=== PATIENT | female | born 1930 | race Caucasian/White ===

== ENCOUNTER 2019-08-13 05:32 | Observation (INO) ==
[2019-08-13 06:10] LABS: Microscopic, Urine URINE MICROSCOPIC (MICROSCOPIC)
[2019-08-13 06:13] LABS: Basophils % 0.3 % (0.1-2.0); Eosinophils # 0.1 K/mm3 (0.0-0.4); Eosinophils % 0.9 % (0.1-12.0); Lymphocytes # 1.5 K/mm3 (0.7-4.5); Mean Corpuscular HGB Conc 29.7 g/dL (31.8-35.4); Mean Corpuscular Volume 103.4 fl (81-99); Monocytes # 0.5 K/mm3 (0.1-1.0); Monocytes % 6.3 % (1.7-9.3); Neutrophils # 5.1 K/mm3 (1.8-7.8); Neutrophils % 71.5 % (37.0-80.0); Platelet Count 506 K/mm3 (142-424); Red Blood Count 3.57 M/mm3 (4.20-5.40); White Blood Count 7.1 K/mm3 (4.8-10.8)
[2019-08-13 06:15] LABS: Appearance,Urine CLEAR (Clear); Bilirubin,Urine Negative (Negative); Blood, Urine 1+ (Negative); Color,Urine YELLOW (Yellow); Glucose,Urine (UA) Negative (Negative); Ketones,Urine Negative (Negative); Leukocyte Esterase,Urine 3+ (Negative); PH,Urine 6.5 (5.0-8.5); Protein,Urine Negative (Negative)
[2019-08-13 06:20] LABS: Albumin Level 2.3 gm/dL (3.4-5.0); Albumin/Globulin Ratio 0.5 (1.1-1.8); Anion Gap 10.2 mEq/L (5-15); Bilirubin,Total 0.5 mg/dL (0.2-1.0); Calcium 9.5 mg/dL (8.5-10.1); Globulin 4.8 gm/dl (1.3-3.2); Total Protein,Serum 7.1 gm/dL (6.4-8.2)
[2019-08-13 06:32] LABS: Bacteria,Urine 3+ /lpf; Squamous Epithelial Cell,Urine Occasional #/hpf (0-5); WBC,Urine 20-50 #/hpf (0-3)
[2019-08-13 06:37] LABS: C-Reactive Protein 35.3 mg/dL (0.0-0.9)
[2019-08-13 06:54] LABS: Erythrocyte Sedimentation Rate > 140 mm/hr (0-30)
--- NOTE | 2019-08-13 07:10 | Emergency Department Note ---
ED Disposition Clinical Impression: Elevated erythrocyte sedimentation rate Pneumothorax Qualifiers: Pneumothorax type: unspecified pneumothorax Qualified Code(s): J93.9 - Pneumothorax, unspecified UTI (urinary tract infection) Qualifiers: Urinary tract infection type: site unspecified Hematuria presence: without hematuria Qualified Code(s): N39.0 - Urinary tract infection, site not specified Injury of left elbow Qualifiers: Encounter type: subsequent encounter Qualified Code(s): S59.902D - Unspecified injury of left elbow, subsequent encounter Dementia Qualifiers: Dementia type: unspecified type Dementia behavioral disturbance: with behavioral disturbance Qualified Code(s): 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 The time I documented below is in addition to time spent performing reported procedures but includes the following listed in this critical care notation. Medical Decision Making - Medical Records Medical records reviewed: Yes: I reviewed the patient's medical records. - Gabe Inquiry Pt receiving controlled substance: No Vital Signs: 08/13/19 05:32 08/13/19 05:33 08/13/19 08:08 Temperature 98.4 F 98.4 F Temperature Source Oral Oral Pulse Rate [Right] 81 81 75 Respiratory Rate 18 18 Blood Pressure [Right Radial Artery] 156/89 H 156/89 H 150/61 H Blood Pressure Mean [Right Radial Artery] 111 111 90 02 Sat by Pulse Oximetry 98 98 97 - Lab Data Lab results reviewed: Yes: I reviewed the patient's lab results. Lab Results 08/13/19 05:55: WBC 7.1, RBC 3.57 L, Hgb 11.0 L, Hct 37.0, MCV 103.4 H, MCH 3 0.7, MCHC 29.7 L, RDW 15.0, Plt Count 506 H, MPV 7.0 L, Neut % (Auto) 71.5, Lymph % (Auto) 21.0, [place] % (Auto) 6.3, Eos % (Auto) 0.9, Baso % (Auto) 0.3, Neut # (Auto) 5.1, Lymph # (Auto) 1.5, [place] # (Auto) 0.5, Eos # (Auto) 0.1, Baso # (Auto) 0.0, ESR > 140 H 08/13/19 05:55: Sodium 137, Potassium 4.2, Chloride 101, Carbon Dioxide 30, Anion Gap 10.2, BUN 37 H, Creatinine 1.02, Estimated Creat Clear 35, Estimated GFR 51 L, Est GFR ( Amer) 62, Glucose 100, Calcium 9.5, Total Bilirubin 0.5, AST 17, ALT 11 L, Alkaline Phosphatase 58, C-Reactive Protein 35.3 H, Total Protein 7.1, Albumin 2.3 L, Globulin 4.8 H, Albumin/Globulin Ratio 0.5 L 08/13/19 06:07: Urine Color Yellow, Urine Appearance Clear, Urine pH 6.5, Ur Specific [place] 1.010, Urine Protein Negative, Urine Glucose (UA) Negative, Urine Ketones Negative, Urine Blood 1+, Urine Nitrate Positive, Urine Bilirubin Negative, Urine Urobilinogen 1.0, Ur Leukocyte Esterase 3+ A, Urine RBC 5-10, Urine WBC 20-50, Ur Squamous Epith Cells Occasional, Urine Bacteria 3+ 08/13/19 06:40: Lactate 0.7 Result diagrams: 08/13/19 05:55 08/13/19 05:55 Orders (Tests/Meds): ED MEDICATIONS Generic Name Dose Route Start Last Admin Trade Name Freq PRN Reason Stop Dose Admin Ceftriaxone Sodium 1 gm/ 50 mls @ 100 mls/hr 08/13/19 07:30 08/13/19 07:27 Sodium Chloride IV 08/27/19 07:29 100 mls/hr Q24H OLIVIA Administration Protocol Discontinued Medications Generic Name Dose Route Start Last Admin Trade Name Freq PRN Reason Stop Dose Admin Sodium Chloride 1,000 mls @ 999 mls/hr 08/13/19 05:45 08/13/19 06:06 Sod Chlor 0.9% 1000ml Bag IV 08/13/19 06:45 999 mls/hr .Q1H1M OLIVIA Administration ORDERS Category Date Time Status XR chest AP Stat Exams 08/13/19 05:40 Taken XR pelvis 1-2V Stat Exams 08/13/19 05:40 Taken Blood Culture Stat Micro 08/13/19 06:40 Received Urine Culture Stat Micro 08/13/19 06:07 Received - Radiology Data #1 Image(s): Chest, Pelvis Image Reviewed: Yes I reviewed the patient's radiology image Preliminary Findings: Abnormal (pxt on lt ) - CT Data CT Scan: Head, C-Spine Time Received: 07:[address] Reviewed: Yes: I have viewed the radiologist's interpretation Preliminary Findings: Abnormal (djd), No Fracture Seen - Physician Consults Physician Consulted: alessandra Reason -: Admission Additional Consult: howie Reason -: Pt condition Fall HPI - General Chief Complaint: Fall Stated Complaint: Fall Time Seen by Provider: 08/13/19 06:15 Mode of Arrival: EMS Limitations: Physical Limitations Description of Symptoms (Recalled from ER Triage Doc. by RN): Pt brought in per ems for an unwitnessed fall according to the alf nurse. Pt denies any pain or any other complaints. - History of Present Illness HPI Narrative: pt with c/o of reported hip pain on lt - pt with no specific c/o at this time Onset (ago): hour(s) Place fall occurred: alf/SNF Loss of consciousness: none Prolonged down time: no Location of injury: head, neck Severity: moderate Associated symptoms (after fall): denies - Related Data Home Medications Medication Instructions Recorded Confirmed Atenolol [Atenolol 50mg Tab] 50 mg PO DAILY 07/02/19 08/13/19 Atorvastatin Calcium [Atorvastatin 20 mg PO HS 07/02/19 08/13/19 20mg Tab] Clopidogrel Bisulfate [Plavix 75mg 75 mg PO DAILY 07/02/19 08/13/19 Tab] LORazepam [Ativan 0.5mg 0.5 mg PO DAILY 07/02/19 08/13/19 tablet] Levothyroxine Sodium 75 mcg PO DAILY 07/02/19 08/13/19 [Levothyroxine 75mcg (0.075mg) Tab] Megestrol Acetate [Megace Es] 625 mg PO DAILY 07/02/19 08/13/19 hydroCHLOROthiazide [HCTZ 25mg 25 mg PO DAILY 07/02/19 08/13/19 tab] Acetaminophen [Acetaminophen Extra 500 mg PO NEEDED PRN 08/13/19 08/13/19 Strength] Polyethylene Glycol 3350 [Miralax 17 gm PO DAILYP PRN 08/13/19 08/13/19 17gm Packet] Allergies Allergy/AdvReac Type Severity Reaction Status Date / Time Penicillins [PENICILLINS] Allergy Unknown Verified 05/02/18 14:23 [facility] History - Hepatitis A Screen Drug use history?: No High risk sexual behaviors?: No History of sexually transmitted infection?: No Currently employed?: No Childcare worker?: No Do you have indoor plumbing?: Yes Do you have electricity?: Yes Attestation statement:: This patient has been screened for Hepatitis A risk factors. I have reviewed the patient's past medical history: Yes Medical History: Denies:: Diabetes Mellitus Type 1, Diabetes Mellitus Type 2 Other Medical History: Reports: Hypothyroidism - Social History Alcohol Intake: never Occupational Status: retired ROS Obtained: Yes unobtainable due to mental status Physical Exam - General General appearance: alert - Head Head exam: normocephalic - Eye Eye exam: Present: PERRL, EOMI - ENT ENT exam: Present: mucous membranes dry - Neck Neck exam: Present: trachea midline - Respiratory Respiratory exam: Present: other (dec bs on lt ). Absent: respiratory distress - Cardiovascular Cardiovascular exam: Present: regular rate, systolic murmur, +S4 - Abdominal Exam Abdominal exam: Present: soft - Extremities Exam Extremities exam: Present: other (chronic changes on lt ) - Neurological Exam Neurological exam: Present: alert, CN II-XII intact, other (has prob dementia) - Skin Skin exam: Absent: rash
--- NOTE | 2019-08-13 08:58 | Pharmacy Consult Notes ---
[facility] Pharmacy VTE Monitoring - Patient Demographics Admission date: 08/13/19 Report Date: 08/13/19 Time: 08:58 Allergies/Adverse Reactions: Patient Allergies Penicillins [PENICILLINS] Allergy (Unknown, Verified 05/02/18 14:23) Height: 1.52 m Weight: 58.967 kg Patient Problems: Current Active Problems Injury of left elbow (Acute) Dementia (Acute) Pneumothorax (Acute) UTI (urinary tract infection) (Acute) Elevated erythrocyte sedimentation rate (Acute) - VTE Risk Labs: VTE Related Lab Results Hgb 11.0 g/dL (12.2-16.2) L 08/13/19 05:55 Hct 37.0 % (37.0-47.0) 08/13/19 05:55 Plt Count 506 K/mm3 (142-424) H 08/13/19 05:55 BUN 37 mg/dL (7-18) H 08/13/19 05:55 Creatinine 1.02 mg/dL (0.55-1.02) 08/13/19 05:55 Estimated Creat Clear 35 mL/min (50-200) 08/13/19 05:55 - Prophylaxis VTE Prophylaxis Ordered?: Yes Types of VTE Prophylaxis: TEDS Knee High Location of Applied Device: Bilateral Lower Extremeties - VTE Diagnosis Confirmed Treatment or plan recommended: Continue Current Treatment
--- NOTE | 2019-08-13 11:10 | H&P/Discharge Summary ---
General - General Admission date:: 08/13/19 Discharge date: 08/13/19 *Admission Date: 08/13/19 *Chief complaint: Hip pain *History of present illness: 88-year-old female custodial resident presented to the emergency department earlier this morning because of complaint of hip pain with questionable history of fall. Patient was evaluated and while her work-up ruled out a hip fracture a chest x-ray that was performed during the evaluation raise high suspicion for a pneumothorax. Patient did not claim any shortness of breath and her O2 sats were normal. Decision was made to obtain a surgical consultation and admit the patient for observation. [facility] History I have reviewed the patient's past medical history: Yes Medical History: Reports:: Dementia, Hyperlipidemia, Hypertension Denies:: Diabetes Mellitus Type 1, Diabetes Mellitus Type 2 *Have you ever received a pneumonia vaccine?: Yes *Have you received a flu vaccine this season?: Yes Other Medical History: Reports: Hypothyroidism Laterality Cases: Left: Total Knee Replacement Other Surgeries: Yes: Colon Resection, Hysterectomy-Total - *Social History Smoking Status: Never smoker Alcohol Intake: never *Occupational Status:: retired Housing: custodial *Travel in the last 8 weeks: None Family Hx:: Cancer, Heart Attack, Hyperlipidemia, Hypertension, Thyroid Disorder Review of Systems - Review of Systems Review of systems:: unable to obtain Exam Vital signs and Labs for Last 24 Hours: Temp Pulse Resp BP Pulse Ox 97.6 F 76 16 155/87 H 98 08/13/19 10:00 08/13/19 10:00 08/13/19 10:00 08/13/19 10:00 08/13/19 10:00 Laboratory Results - last 24 hr 08/13/19 05:55: WBC 7.1, RBC 3.57 L, Hgb 11.0 L, Hct 37.0, MCV 103.4 H, MCH 30.7, MCHC 29.7 L, RDW 15.0, Plt Count 506 H, MPV 7.0 L, Neut % (Auto) 71.5, Lymph % (Auto) 21.0, [place] % (Auto) 6.3, Eos % (Auto) 0.9, Baso % (Auto) 0.3, Neut # (Auto) 5.1, Lymph # (Auto) 1.5, [place] # (Auto) 0.5, Eos # (Auto) 0.1, Baso # (Auto) 0.0, ESR > 140 H 08/13/19 05:55: Sodium 137, Potassium 4.2, Chloride 101, Carbon Dioxide 30, Anion Gap 10.2, BUN 37 H, Creatinine 1.02, Estimated Creat Clear 35, Estimated GFR 51 L, Est GFR ( Amer) 62, Glucose 100, Calcium 9.5, Total Bilirubin 0.5, AST 17, ALT 11 L, Alkaline Phosphatase 58, C-Reactive Protein 35.3 H, Total Protein 7.1, Albumin 2.3 L, Globulin 4.8 H, Albumin/Globulin Ratio 0.5 L 08/13/19 06:07: Urine Color Yellow, Urine Appearance Clear, Urine pH 6.5, Ur Specific [place] 1.010, Urine Protein Negative, Urine Glucose (UA) Negative, Urine Ketones Negative, Urine Blood 1+, Urine Nitrate Positive, Urine Bilirubin Negative, Urine Urobilinogen 1.0, Ur Leukocyte Esterase 3+ A, Urine RBC 5-10, Urine WBC 20-50, Ur Squamous Epith Cells Occasional, Urine Bacteria 3+ 08/13/19 06:40: Lactate 0.7 I & O for Last 24 hours: Intake & Output 08/10/19 08/11/19 08/12/19 08/13/19 11:59 11:59 11:59 11:59 Weight 107 lb 4 oz Narrative: Patient is awake and sitting up in bed eating lunch at this time. She does not appear to be in any distress. She is not requiring supplemental oxygen. Head exam is grossly normal. Oropharynx is moist. Lungs have equal breath sounds bilaterally. Heart has a regular rate and rhythm. Skin exam does not reveal any subcutaneous air in the supraclavicular region. Patient can move all extremities. Neurologically patient can answer yes and no questions but has difficulty speaking in sentences. She is able to indicate to me that she wants her sister making decisions if she is incapable Hospital Course Hospital Course: Patient was admitted and surgical consult was obtained. Question was raised abo ut the presence of pneumothorax and after official radiology review it was determined that there is no pneumothorax. Patient's exam is not consistent with pneumothorax. Chest x-ray did show a skinfold that was quite deceptive. Patient will be discharged back to [facility]. No changes will be made in medications except for the addition of antibiotic to treat urinary tract infection Results Labs on day of discharge: Labs from last 24 hours 08/13/19 08/13/19 08/13/19 06:40 06:07 05:55 WBC RBC Hgb Hct MCV MCH MCHC RDW Plt Count MPV Neut % (Auto) Lymph % (Auto) [place] % (Auto) Eos % (Auto) Baso % (Auto) Neut # (Auto) Lymph # (Auto) [place] # (Auto) Eos # (Auto) Baso # (Auto) ESR Sodium 137 Potassium 4.2 Chloride 101 Carbon Dioxide 30 Anion Gap 10.2 BUN 37 H Creatinine 1.02 Estimated Creat Clear 35 Estimated GFR 51 L Est GFR ( Amer) 62 Glucose 100 Lactate 0.7 Calcium 9.5 Total Bilirubin 0.5 AST 17 ALT 11 L Alkaline Phosphatase 58 C-Reactive Protein 35.3 H Total Protein 7.1 Albumin 2.3 L Globulin 4.8 H Albumin/Globulin Ratio 0.5 L Urine Color Yellow Urine Appearance Clear Urine pH 6.5 Ur Specific [place] 1.010 Urine Protein Negative Urine Glucose (UA) Negative Urine Ketones Negative Urine Blood 1+ Urine Nitrate Positive Urine Bilirubin Negative Urine Urobilinogen 1.0 Ur Leukocyte Esterase 3+ A Urine RBC 5-10 Urine WBC 20-50 Ur Squamous Epith Cells Occasional Urine Bacteria 3+ 08/13/19 05:55 WBC 7.1 RBC 3.57 L Hgb 11.0 L Hct 37.0 MCV 103.4 H MCH 30.7 MCHC 29.7 L RDW 15.0 Plt Count 506 H MPV 7.0 L Neut % (Auto) 71.5 Lymph % (Auto) 21.0 [place] % (Auto) 6.3 Eos % (Auto) 0.9 Baso % (Auto) 0.3 Neut # (Auto) 5.1 Lymph # (Auto) 1.5 [place] # (Auto) 0.5 Eos # (Auto) 0.1 Baso # (Auto) 0.0 ESR > 140 H Sodium Potassium Chloride Carbon Dioxide Anion Gap BUN Creatinine Estimated Creat Clear Estimated GFR Est GFR ( Amer) Glucose Lactate Calcium Total Bilirubin AST ALT Alkaline Phosphatase C-Reactive Protein Total Protein Albumin Globulin Albumin/Globulin Ratio Urine Color Urine Appearance Urine pH Ur Specific [place] Urine Protein Urine Glucose (UA) Urine Ketones Urine Blood Urine Nitrate Urine Bilirubin Urine Urobilinogen Ur Leukocyte Esterase Urine RBC Urine WBC Ur Squamous Epith Cells Urine Bacteria DS: Diagnosis - Discharge Diagnosis (1) UTI (urinary tract infection) Status: Acute (2) Abnormal chest x-ray Status: Acute (3) Dementia Status: Acute Discharge Plan - Patient Discharge Instructions ACTIVITY: Continue current activity DIET: continue same diet - Follow up Plan Disposition: [facility] Home Medications: Home Medications Medication Instructions Recorded Confirmed Type Atorvastatin Calcium [Atorvastatin 20 mg PO HS 07/02/19 08/13/19 History 20mg Tab] Clopidogrel Bisulfate [Plavix 75mg 75 mg PO DAILY 07/02/19 08/13/19 History Tab] LORazepam [Ativan 0.5mg 1 mg PO HS 07/02/19 08/13/19 History tablet] Levothyroxine Sodium 75 mcg PO DAILY 07/02/19 08/13/19 History [Levothyroxine 75mcg (0.075mg) Tab] hydroCHLOROthiazide [HCTZ 25mg 25 mg PO DAILY 07/02/19 08/13/19 History tab] Acetaminophen [Acetaminophen Extra 500 mg PO NEEDED PRN 08/13/19 08/13/19 History Strength] Cyproheptadine HCl 4 mg PO 0600,1100,1600 08/13/19 08/13/19 History Nitrofurantoin Macrocrystal 100 mg PO QID 7 Days #28 cap 08/13/19 Rx [Macrodantin 100mg capsule] Polyethylene Glycol 3350 [Miralax 17 gm PO DAILY 08/13/19 08/13/19 History 17gm Packet] Prescriptions/Medication Reconciliation: New Nitrofurantoin Macrocrystal [Macrodantin 100mg capsule] 100 mg PO QID 7 Days #28 cap Continued LORazepam [Ativan 0.5mg tablet] 1 mg PO HS Levothyroxine Sodium [Levothyroxine 75mcg (0.075mg) Tab] 75 mcg PO DAILY hydroCHLOROthiazide [HCTZ 25mg tab] 25 mg PO DAILY Clopidogrel Bisulfate [Plavix 75mg Tab] 75 mg PO DAILY Cyproheptadine HCl 4 mg PO 0600,1100,1600 Atorvastatin Calcium [Atorvastatin 20mg Tab] 20 mg PO HS Polyethylene Glycol 3350 [Miralax 17gm Packet] 17 gm PO DAILY Acetaminophen [Acetaminophen Extra Strength] 500 mg PO NEEDED PRN PRN Reason: pain - Problem Reconciliation Problems Reviewed?: Yes
--- NOTE | 2019-08-13 11:35 | Consult Report ---
*Admission Date: 08/13/19 *Reason for consult:: Left pneumothorax *History of present illness: This is an 88-year-old female seen in consultation after presenting to the emergency department for an apparent fall. A possible left-sided pneumothorax with some subcu emphysema noted on chest x-ray. She is not short of air. Review of Systems - *Respiratory Denies shortness of breath [facility] History Medical History: Reports:: Hyperlipidemia, Hypertension Denies:: Diabetes Mellitus Type 1, Diabetes Mellitus Type 2 *Have you ever received a pneumonia vaccine?: Yes *Have you received a flu vaccine this season?: Yes Other Medical History: Reports: Hypothyroidism Laterality Cases: Left: Total Knee Replacement Other Surgeries: Yes: Colon Resection, Hysterectomy-Total - *Social History Smoking Status: Never smoker Alcohol Intake: never *Occupational Status:: retired Housing: shelter *Travel in the last 8 weeks: None Family Hx:: Cancer, Heart Attack, Hyperlipidemia, Hypertension, Thyroid Disorder Meds Home Medications Medication Instructions Recorded Confirmed Type Atorvastatin Calcium [Atorvastatin 20 mg PO HS 07/02/19 08/13/19 History 20mg Tab] Clopidogrel Bisulfate [Plavix 75mg 75 mg PO DAILY 07/02/19 08/13/19 History Tab] LORazepam [Ativan 0.5mg 1 mg PO HS 07/02/19 08/13/19 History tablet] Levothyroxine Sodium 75 mcg PO DAILY 07/02/19 08/13/19 History [Levothyroxine 75mcg (0.075mg) Tab] hydroCHLOROthiazide [HCTZ 25mg 25 mg PO DAILY 07/02/19 08/13/19 History tab] Acetaminophen [Acetaminophen Extra 500 mg PO NEEDED PRN 08/13/19 08/13/19 History Strength] Cyproheptadine HCl 4 mg PO 0600,1100,1600 08/13/19 08/13/19 History Polyethylene Glycol 3350 [Miralax 17 gm PO DAILY 08/13/19 08/13/19 History 17gm Packet] Allergies Allergy/AdvReac Type Severity Reaction Status Date / Time Penicillins [PENICILLINS] Allergy Unknown Verified 05/02/18 14:23 Exam Vital signs and Labs for Last 24 Hours: Temp Pulse Resp BP Pulse Ox 97.6 F 76 16 155/87 H 98 08/13/19 10:00 08/13/19 10:00 08/13/19 10:00 08/13/19 10:00 08/13/19 10:00 Laboratory Results - last 24 hr 08/13/19 05:55: WBC 7.1, RBC 3.57 L, Hgb 11.0 L, Hct 37.0, MCV 103.4 H, MCH 30.7, MCHC 29.7 L, RDW 15.0, Plt Count 506 H, MPV 7.0 L, Neut % (Auto) 71.5, L ymph % (Auto) 21.0, [place] % (Auto) 6.3, Eos % (Auto) 0.9, Baso % (Auto) 0.3, Neut # (Auto) 5.1, Lymph # (Auto) 1.5, [place] # (Auto) 0.5, Eos # (Auto) 0.1, Baso # (Auto) 0.0, ESR > 140 H 08/13/19 05:55: Sodium 137, Potassium 4.2, Chloride 101, Carbon Dioxide 30, Anion Gap 10.2, BUN 37 H, Creatinine 1.02, Estimated Creat Clear 35, Estimated GFR 51 L, Est GFR ( Amer) 62, Glucose 100, Calcium 9.5, Total Bilirubin 0.5, AST 17, ALT 11 L, Alkaline Phosphatase 58, C-Reactive Protein 35.3 H, Total Protein 7.1, Albumin 2.3 L, Globulin 4.8 H, Albumin/Globulin Ratio 0.5 L 08/13/19 06:07: Urine Color Yellow, Urine Appearance Clear, Urine pH 6.5, Ur Specific [place] 1.010, Urine Protein Negative, Urine Glucose (UA) Negative, Urine Ketones Negative, Urine Blood 1+, Urine Nitrate Positive, Urine Bilirubin Negative, Urine Urobilinogen 1.0, Ur Leukocyte Esterase 3+ A, Urine RBC 5-10, Urine WBC 20-50, Ur Squamous Epith Cells Occasional, Urine Bacteria 3+ 08/13/19 06:40: Lactate 0.7 I & O for Last 24 hours: Intake & Output 08/10/19 08/11/19 08/12/19 08/13/19 11:59 11:59 11:59 11:59 Weight 107 lb 4 oz - Constitutional no acute distress - *Routine Respiratory Exam Absent: respiratory distress Results - Labs 08/13/19 05:55 08/13/19 05:55 Laboratory Results - last 24 hr 08/13/19 05:55: WBC 7.1, RBC 3.57 L, Hgb 11.0 L, Hct 37.0, MCV 103.4 H, MCH 30.7, MCHC 29.7 L, RDW 15.0, Plt Count 506 H, MPV 7.0 L, Neut % (Auto) 71.5, Lymph % (Auto) 21.0, [place] % (Auto) 6.3, Eos % (Auto) 0.9, Baso % (Auto) 0.3, Neut # (Auto) 5.1, Lymph # (Auto) 1.5, [place] # (Auto) 0.5, Eos # (Auto) 0.1, Baso # (Auto) 0.0, ESR > 140 H 08/13/19 05:55: Sodium 137, Potassium 4.2, Chloride 101, Carbon Dioxide 30, Anion Gap 10.2, BUN 37 H, Creatinine 1.02, Estimated Creat Clear 35, Estimated GFR 51 L, Est GFR ( Amer) 62, Glucose 100, Calcium 9.5, Total Bilirubin 0.5, AST 17, ALT 11 L, Alkaline Phosphatase 58, C-Reactive Protein 35.3 H, Total Protein 7.1, Albumin 2.3 L, Globulin 4.8 H, Albumin/Globulin Ratio 0.5 L 08/13/19 06:07: Urine Color Yellow, Urine Appearance Clear, Urine pH 6.5, Ur Specific [place] 1.010, Urine Protein Negative, Urine Glucose (UA) Negative, Urine Ketones Negative, Urine Blood 1+, Urine Nitrate Positive, Urine Bilirubin Negative, Urine Urobilinogen 1.0, Ur Leukocyte Esterase 3+ A, Urine RBC 5-10, Urine WBC 20-50, Ur Squamous Epith Cells Occasional, Urine Bacteria 3+ 08/13/19 06:40: Lactate 0.7 - Imaging Chest x-ray: report reviewed, image reviewed Assessment and Plan (1) Pneumothorax Current visit: Yes Status: Acute Qualifiers: Pneumothorax type: unspecified pneumothorax Qualified Code(s): J93.9 - Pneumothorax, unspecified Category: Medical Code(s): J93.9 - Pneumothorax, unspecified The patient does have a significant "skin fold". She also has some infolding of her lateral chest subcutaneous tissue that does have the appearance of emphysema on chest x-ray. Lung markings beyond the skin fold are apparent with manipulation of the image; however, the images (as they appeared on the monitor in emergency department) were certainly more consistent with pneumothorax as the lung markings were not as apparent. I do not believe she has a pneumothorax as the images are more consistent with "skin folds". In addition she is not short of air and is certainly not in respiratory distress.
== END 2019-08-13 14:11 ==
LOC: ER 05:32 → 2ND 07:55 → INTOOBSV 07:55 → 2ND 09:57
PROVIDERS: ADMIT Family Medicine; ATTEND Family Medicine
CPT/HCPCS: 70450; 71010; 71045; 72125; 72170; 80053; 81001; 83605; 85025; 85651; 86140; 87040; 87086; 87088; 87186; 96365; 96367; 99285; G0378